=== PATIENT | female | born 1970 | race Caucasian/White ===

== ENCOUNTER 2019-08-19 19:37 | Inpatient (IN) | payer MEDICAID, SELFPAY ==
[2019-08-19] VITALS (7 sets, daily range): BP systolic 90–126; BP diastolic 70–96; PULSE 81–119; RESP 20–29; O2SAT 94–100
--- NOTE | 2019-08-19 | ECG_ITS ---
Measurements Intervals [place] Rate: 117 P: 55 AR: 132 QRS: 48 QRSD: 85 T: 58 QT: 381 QTc: 533 Interpretive Statements SINUS TACHYCARDIA POSSIBLE LEFT ATRIAL ENLARGEMENT NONSPECIFIC ST & T-WAVE ABNORMALITY- ANTEROLAT/INF LEADS ABNORMAL ECG Electronically Signed On 08-20-2019 7:00:58 CDT by Alexandre Celestin D.O.
--- NOTE | ~2019-08-19 | XR_ITS ---
XR chest 1V portable DATE: 08/19/2019 20:25 INDICATION: Overdose TECHNIQUE: Portable AP chest on 08/19/2019 at 2024 hours COMPARISON: None FINDINGS: There are. Consider pneumonia and aspiration pneumonitis mild bibasilar infiltrates and/or atelectasis. Pneumonia should be considered. Given the history of overdose, consider aspiration pneum onitis. Normal heart size. No pleural effusion or pulmonary vascular congestion or pneumothorax. Surgical clips overlie the left cervical area. Skeletal structures are unremarkable. IMPRESSION: Mild bibasilar infiltrate and/or atelectasis Reviewed, dictated and finalized at location A.
--- NOTE | ~2019-08-19 | XR_ITS ---
EXAMINATION: XR chest ET placement DATE: 08/19/2019 22:39 INDICATION: Intubation. TECHNIQUE: A single frontal view of the chest was obtained. COMPARISON: Chest single view 08/19/2019 at 8:20 PM FINDINGS: There is mild atelectasis at left lung base. No pleural effusion or pneumothorax. The heart size is normal. The endotracheal tube tip is 2.9 cm above the ava. The nasogastric tube tip is in the stomach. IMPRESSION: 1. Mild atelectasis at left lung base. Reviewed, dictated and finalized at location A.
--- NOTE | ~2019-08-19 | CT_ITS ---
EXAMINATION: CT brain wo con DATE: 08/19/2019 21:49 INDICATION: Altered mental status. Drug overdose. TECHNIQUE: Computed tomography (CT) of the head was performed without intravenous contrast. The mA wa s adjusted according to patient size. Iterative reconstruction technique was employed. The dose-lengt h product was 681.00 mGy-cm. COMPARISON: None FINDINGS: There is no intracranial hemorrhage, acute infarction, or abnormal intracranial mass lesion . The ventricles are normal in size. The orbits are normal. There is mucosal thickening in the parana ulysses sinuses. The mastoid air cells are normal. IMPRESSION: 1. Normal brain. Reviewed, dictated and finalized at location A. IMPRESSION: 1. Normal brain.
[2019-08-19] MEDS: NALOXONE HCL INJ 2 MG/2 ML AMP IV PUSH (19:50)
--- NOTE | 2019-08-19 19:50 | PC.NURSE ---
ERP in room. ERP inserted 24g nasal trumpet in R nare.
[2019-08-19 20:05] LABS: Basophils Percent Auto 0.4 % (0.2-1.2); Eosinophils Absolute Auto 0.2 K/mm3 (0-0.3); Hematocrit 42.4 % (37.0-47.0); Hemoglobin 14.5 g/dL (12.0-15.0); Immature Granulocyte Absolute 0.04 K/mm3 (0.00-0.031); Immature Granulocyte Percent A 0.5 % (0-0.5); Lymphocytes Absolute Auto 2.44 K/mm3 (0.9-3.2); Lymphocytes Percent Auto 30.7 % (18.3-44.2); Mean Corpuscular HGB Conc 34.2 g/dl (32-36); Mean Corpuscular Hemoglobin 30.7 pg (26-34); Mean Corpuscular Volume 89.6 fl (80-100); Mean Platelet Volume 9.4 fl (7.4-10.4); Monocytes Absolute Auto 0.7 K/mm3 (0.1-0.6); Monocytes Percent Auto 9.3 % (2.6-8.5); Neutrophils Absolute Auto 4.5 K/mm3 (1.3-6.7); Neutrophils Percent Auto 57.1 % (45.5-73.1); Platelet Count Result 363 k/mm3 (150-375); Red Blood Count 4.73 M/mm3 (4.2-5.4); Red Cell Distribution Width 12.4 % (11.5-14.5); White Blood Count 7.9 K/mm3 (4.5-10.0)
--- NOTE | 2019-08-19 20:06 | ED.OVERDOSE ---
HPI - Overdose General Chief Complaint: Overdose Stated Complaint: OD Time Seen by Provider: 08/19/19 20:05 History of Present Illness HPI Narrative: Patient presents via EMS for overdose of benzodiazepines and alcohol. She was apparently speaking in the ambulance, and then slumped over, and became unresponsive. They were bagging when she arrived. Her oxygenation was good, but when she was laying back, her airway was being compromised. Inserted a nasal cannula, into the right nostril, and rolled her to her side. Her oxygenation was fine after that. She is not waking to voice or physical stimulation. complaint: other (Unknown) Onset (ago): hour(s) Timing confirmed by: family member (2119 the [place]oks of 20 years is here now. They have 5 grown children together. The son in the [place] called damian with bad news. She has been under a lot of stress with the COVID she has been under a lot of stress with the COVID) How Overdose Was Discovered: family/friend present at time Associated symptoms: depression Treatments Prior to Arrival: oxygen Related Data Home Medications Medication Instructions Recorded Confirmed hydrochlorothiazide 25 mg PO DAILY 08/19/19 Allergies Allergy/AdvReac Type Severity Reaction Status Date / Time No Known Allergies Allergy Unknown Unverified 03/10/16 16:45 Review of Systems Review of Systems: ROS unobtainable: Yes unobtainable due to mental status PMFSH Surgical History Surgical History (Updated 08/19/19 @ 21:18 by Carol Stewart MD) History of thyroidectomy Family History Family History (Updated 12/20/13 @ 07:13 by DOCTOR UNKNOWN) Sibling Hypertension Father Family history of heart disease in male family member before age 55 Grandparent Family history of heart disease in male family member before age 55 Social History Social History Smoking status: Current every day smoker Alcohol intake: current Gender identity (if verbalized by the patient): Female Exam Narrative: Exam Narrative: GENERAL: Well-appearing, well-nourished, overweight. HEAD: Normocephalic, atraumatic. EYES: ENT: Nares clear, no rhinorrhea or epistaxis. Mucous membranes moist. NECK: Supple. CHEST: Clear to auscultation. No respiratory distress. HEART: Regular rate and rhythm. No murmur heard. Normal peripheral pulses. ABDOMEN: Soft, nontender, nondistended, normal active bowel sounds. EXTREMITIES: No edema. SKIN: Warm, dry, no rash. NEURO: No focal deficits. PSYCH: Not awake, snoring respirations. Course Consultations Consultation #1: Called hospitalist at [address] Dudley requests a head CT, and wants additional information. Date: 08/19/19 Time: 20:51 Consultation #2: Call Dr. Negron for ICU placement, and he requested ABG. Date: 08/19/19 Time: 22:32 Consultation #3: Call Dr. Chen back with the intubation and results of the CAT scan of the head and he accepted to ICU. Date: 08/19/19 Time: 22:36 Vital Signs Vital signs: Vital Signs Pulse Rate 118 H 08/19/19 19:37 Respiratory Rate 29 H 08/19/19 19:37 Blood Pressure 120/92 H 08/19/19 19:37 Pulse Oximetry 95 08/19/19 19:37 Pulse Rate 81 08/19/19 22:46 Respiratory Rate 24 H 08/19/19 22:08 Blood Pressure 93/70 L 08/19/19 22:08 Pulse Oximetry 99 08/19/19 22:46 Procedures Intubation Intubation #1: Intubation Date: 08/19/19 Intubation Time: 22:29 Time out performed: Yes sedative: Etomidate Mg Given: 20 paralytic: Succinylcholine Mg Given: 100 Laryngoscope: Rene Tube Size (cm): 7.0 Method of Intubation: orotracheal Number of Attempts: 2 Tube Secured Depth (cm): 24 Tube Secured Location: lips Tube Placement Confirmation: visualized tube passing through cords, equal breath sounds bilaterally and confirmation by capnometry Patient Tolerated Procedure: well Intubation Complications: none
[2019-08-19 20:09] LABS: Add Urine Microscopic? NO; Appearance Urine Clear (Clear); Bilirubin Urine Negative (Negative); Blood Urine Negative (Negative); Color Urine Yellow (Yellow); Glucose Urine UA Negative (Negative); Ketones Urine Negative (Negative); Leukocyte Esterase Ur Negative LEU/UL (Negative); Nitrate Urine Negative (Negative); Protein Urine Negative (Negative); Specific Grav Ur 1.009 (1.001-1.035); Urobilinogen Urine Negative mg/dL (<2.0)
[2019-08-19 20:20] LABS: Acetaminophen < 10 ug/mL (10-30); Ethanol 188 mg/dL (<10); Salicylate < 1.0 mg/dL (2-20)
[2019-08-19 20:21] LABS: Alanine Aminotransferase 37 U/L (4-35); Albumin Level 4.6 g/dL (3.5-5.1); Alkaline Phosphatase 89 U/L (38-126); Aspartate Amino Transferase 44 U/L (14-36); Bilirubin,Total 0.3 mg/dL (0.2-1.3); Blood Urea Nitrogen 11 mg/dL (7-17); Calcium 9.3 mg/dL (8.4-10.2); Carbon Dioxide 24 mmol/L (22-30); Chloride 100 mmol/L (98-107); Estimated Glomerular Filt Rate 53; Glucose 131 mg/dL (65-105); Potassium 3.3 mmol/L (3.4-5.0); Sodium 137 mmol/L (137-145)
[2019-08-19 20:30] LABS: Barbiturate Screen Urine Negative (Negative); Benzodiazepines Screen Urine Positive (Negative)
--- NOTE | 2019-08-19 20:30 | PC.NURSE ---
Poison Control contacted. Informed us to add a Magnesium level and to be in the look out for EKG changes. Poison control said to keep Magnesium and potassium levels on the high end of normal.
[2019-08-19 20:31] LABS: Cannabinoid Screen Urine Negative (Negative); Cocaine Screen Urine Negative (Negative); Methadone Screen Urine Negative (Negative); Opiate Screen Urine Negative (Negative); Phencyclidine Screen Urine Negative (Negative)
[2019-08-19 20:47] LABS: Amphetamine Screen Urine Negative (Negative)
[2019-08-19 20:50] LABS: Magnesium 2.2 mg/dL (1.6-2.3)
[2019-08-19 20:51] LABS: Thyroid Stimulating Hormone 0.648 uIU/mL (0.465-4.680)
[2019-08-19 21:42] LABS: Lactic Acid 3.4 mmol/L (0.7-2.1)
[2019-08-19] MEDS: metroNIDAZOLE 500 MG/ISO 100ML 500 MG/100 ML BAG 100 MG IVPB (22:16)
--- NOTE | 2019-08-19 22:16 | PC.NURSE ---
ERP in room to intubate pt. Pt family member discussed plan and sent out to waiting room.
--- NOTE | 2019-08-19 22:20 | PC.NURSE ---
20 etomidate/100 succinocholine given at this time.
--- NOTE | 2019-08-19 22:22 | PC.NURSE ---
Pt intubated at this time with 7.0 tube 24 at lip.
[2019-08-19] MEDS: SODIUM CHLORIDE 0.9% IV 1,000 ML 999 ML IV CONT (22:51)
[2019-08-19] MEDS: PROPOFOL IV EMULSION 100 ML 2.9 MG IV CONT (22:57)
[2019-08-19 23:30] LABS: Alveolar/Arterial O2 Gradient 150.8 mmHg; Base Excess ABG -2.8 mEq/l (+/-2.0); Fractional Inspired Oxygen 50 %; HCO3 ABG 22.1 mEq/l (22.0-26.0); Methemoglobin ABG 0.2 %THb (0-1.5); Oxygen Content ABG 18.2 %vol (16.0-22.0); Oxyhemoglobin 94.1 % THb (90.0-100.0); PCO2 ABG 39.1 mmHg (35.0-45.0); PO2 ABG 161.7 mmHg (80.0-100.0); PO2 FiO2 Ratio Arterial Blood 3.23 %; Reduced Hemoglobin 1.7 %THb (0-5.0); Total Hemoglobin 13.5 g/dL (12.0-18.0)
[2019-08-19 23:31] LABS: Arterial Blood Gas PEEP 5 cmH2O; Arterial Blood Gas Pressure Support 0 cmH2O; Arterial Blood Gas Tidal Volume 500 ml; Arterial Blood Gas Vent Mode CMV; Arterial Blood Gas Ventilator rate 12 /MIN; Device VENTILATOR; Modified Allen's Test Pass; Site Drawn RIGHT RADIAL
[2019-08-20] VITALS (17 sets, daily range): BP systolic 100–126; BP diastolic 63–87; PULSE 64–88; RESP 12–20; TEMP 36.4–36.9; O2SAT 98–100; BMI 32.1; BMI 31.8
--- NOTE | 2019-08-20 00:35 | PM.IMHP ---
H&P: HPI History of Present Illness Chief complaint: Overdose Narrative: This is a 49 year old female who presented to the hospital via EMS secondary to a possible drug overdose. EMS reported that she might have overdosed from benzodiazepines and alcohol. The patient was obtunded and could not give ER provider and history. She was intubated and placed on mechanical ventilation in the ER for airway protection. Switch Coupler has been consulted. No further history is obtainable as the patient is intubated and sedated and no family is present. Review of Systems Review of Systems: All systems reviewed & are unremarkable except as noted in HPI and below PMFSH Surgical History Surgical History History of thyroidectomy Family History Family History Sibling Hypertension Father Family history of heart disease in male family member before age 55 Grandparent Family history of heart disease in male family member before age 55 Social History Social History Smoking status: Current every day smoker Alcohol intake: unknown Substance use: unknown Substance use type: unknown Gender identity (if verbalized by the patient): Female Spiritual care concerns: No Agree to blood products: Yes Comments Past medical/surgical/social/family medical history is not obtainable from the patient as she is intubated and sedated. Meds Home Medications and Allergies Home Medications Medication Instructions Recorded Confirmed Type hydrochlorothiazide 25 mg PO DAILY 08/19/19 History Allergies Allergy/AdvReac Type Severity Reaction Status Date / Time No Known Allergies Allergy Unknown Unverified 03/10/16 16:45 Vital Signs Vital Signs - 24 hr 08/19/19 19:37 08/19/19 19:58 08/19/19 20:21 Pulse Rate 118 H 119 H 109 H Respiratory Rate 29 H 26 H 26 H Blood Pressure 120/92 H 109/83 100/77 Pulse Oximetry 95 96 96 08/19/19 20:44 08/19/19 22:08 08/19/19 22:46 Pulse Rate 104 H 85 81 Respiratory Rate 26 H 24 H Blood Pressure 90/76 L 93/70 L Pulse Oximetry 94 96 99 08/19/19 23:36 08/20/19 00:07 Pulse Rate 94 87 Respiratory Rate 20 Blood Pressure 126/96 H Pulse Oximetry 100 100 Exam Const: General: other (intubated, on mechanical ventilation and sedated on propofol) Nutritional Appearance: well nourished HENMT: Head: normal to inspection General nose exam: Normal external nose present Face and sinus: normal facial exam Mouth: Yes Normal oral and palatal mucosa present and Yes oropharynx normal Eyes: Pupils: Equal, round and reactive pupils present EOM: EOMs intact bilaterally Neck: Neck: supple and no JVD Thyroid: thyroid normal Lymphatic: lymphadenopathy not noted Resp: Effort & Inspection: normal respiratory effort Auscultation: clear to auscultation bilaterally Cardio: Rate: regular rate Rhythm: regular rhythm Heart sounds: no murmurs GI: Inspection: normal to inspection Auscultation: normal bowel sounds Skin: General skin exam: normal color and no rashes or lesions noted Neuro: Cranial nerves: Yes Equal, round and reactive pupils present Extrem: General: normal to inspection and no edema H&P: Results Labs Labs: Short CBC 08/19/19 Range/Units 19:53 WBC 7.9 (4.5-10.0) K/mm3 Hgb 14.5 (12.0-15.0) g/dL Hct 42.4 (37.0-47.0) % Plt Count 363 (150-375) k/mm3 BMP 08/19/19 19:53 Sodium 137 Potassium 3.3 L Chloride 100 Carbon Dioxide 24 BUN 11 Creatinine 1.10 H Glucose 131 H Calcium 9.3 Liver Function 08/19/19 Range/Units 19:53 Total Bilirubin 0.3 (0.2-1.3) mg/dL AST 44 H (14-36) U/L ALT 37 H (4-35) U/L Alkaline Phosphatase 89 (38-126) U/L Albumin 4.6 (3.5-5.1) g/dL Urine 08/19/19 Range/Units 19:58 Urine Color Yellow (Yellow) Urine Appearance
[2019-08-20] MEDS: DEXTROSE 5%/0.9% SOD CHL 1,000 ML 100 ML IV CONT ×2 (01:00→11:25)
[2019-08-20 01:16] LABS: Lactic Acid Reflex 3.2 mmol/L (0.7-2.1)
[2019-08-20 01:17] LABS: Blood Urea Nitrogen 8 mg/dL (7-17); Calcium 7.8 mg/dL (8.4-10.2); Carbon Dioxide 20 mmol/L (22-30); Chloride 105 mmol/L (98-107); Estimated Glomerular Filt Rate > 60; Glucose 66 mg/dL (65-105); Potassium 3.4 mmol/L (3.4-5.0); Sodium 137 mmol/L (137-145)
--- NOTE | 2019-08-20 01:47 | PC.NURSE ---
This patient, Flor Wise, was admitted to Intensive Care Unit-10. Patient/family oriented to hospital policies and general routines including ID bracelet, bed and alarms, visiting hours, pain management, procedures, bathroom and other care routines, personal items, smoking policy, room service/diet, and visiting hours. Valuables list has been completed. Information on how to activate the Rapid Response Team has been discussed. Patient/Family are encouraged to report perceived risks to care and to ask questions if they do not understand what they are told or what they should do.
[2019-08-20 04:01] LABS: Reflex Lactic Acid Yes or No Add Lactic
[2019-08-20 04:24] LABS: Alveolar/Arterial O2 Gradient 110.6 mmHg; Base Excess ABG -3.5 mEq/l (+/-2.0); Carboxyhemoglobin 2.1 % THb (0-2.0); Fractional Inspired Oxygen 40 %; HCO3 ABG 21.5 mEq/l (22.0-26.0); Methemoglobin ABG 0.3 %THb (0-1.5); Oxygen Saturation ABG 98.5 % (95.0-100.0); Oxyhemoglobin 95.4 % THb (90.0-100.0); PCO2 ABG 38.7 mmHg (35.0-45.0); PO2 ABG 130.1 mmHg (80.0-100.0); PO2 FiO2 Ratio Arterial Blood 3.25 %; Reduced Hemoglobin 2.2 %THb (0-5.0); Total Hemoglobin 12.3 g/dL (12.0-18.0); pH ABG 7.362 (7.350-7.450)
[2019-08-20 04:26] LABS: Modified Allen's Test Pass; Oxygen Content ABG 2.2 %vol (16.0-22.0); Site Drawn RIGHT RADIAL
[2019-08-20 04:27] LABS: Arterial Blood Gas PEEP 5 cmH2O; Arterial Blood Gas Pressure Support 0 cmH2O; Arterial Blood Gas Tidal Volume 500 ml; Arterial Blood Gas Vent Mode CMV; Arterial Blood Gas Ventilator rate 12 /MIN; Device VENTILATOR
[2019-08-20 04:55] LABS: Basophils Percent Auto 0.3 % (0.2-1.2); Eosinophils Absolute Auto 0.2 K/mm3 (0-0.3); Eosinophils Percent Auto 3.1 % (0-4.4); Hematocrit 40.2 % (37.0-47.0); Hemoglobin 13.6 g/dL (12.0-15.0); Immature Granulocyte Absolute 0.03 K/mm3 (0.00-0.031); Immature Granulocyte Percent A 0.5 % (0-0.5); Lymphocytes Absolute Auto 2.16 K/mm3 (0.9-3.2); Lymphocytes Percent Auto 37.8 % (18.3-44.2); Mean Corpuscular HGB Conc 33.8 g/dl (32-36); Mean Corpuscular Hemoglobin 30.9 pg (26-34); Mean Corpuscular Volume 91.4 fl (80-100); Mean Platelet Volume 9.4 fl (7.4-10.4); Monocytes Absolute Auto 0.8 K/mm3 (0.1-0.6); Monocytes Percent Auto 14.5 % (2.6-8.5); Neutrophils Absolute Auto 2.5 K/mm3 (1.3-6.7); Neutrophils Percent Auto 43.8 % (45.5-73.1); Platelet Count Result 279 k/mm3 (150-375); Red Cell Distribution Width 12.3 % (11.5-14.5); White Blood Count 5.7 K/mm3 (4.5-10.0)
[2019-08-20 05:06] LABS: Lactic Acid 3.3 mmol/L (0.7-2.1)
[2019-08-20 05:08] LABS: Blood Urea Nitrogen 8 mg/dL (7-17); Calcium 8.4 mg/dL (8.4-10.2); Carbon Dioxide 23 mmol/L (22-30); Chloride 105 mmol/L (98-107); Estimated CRCL calculation 100 ml/min; Estimated Glomerular Filt Rate > 60; Glucose 74 mg/dL (65-105); Magnesium 2.1 mg/dL (1.6-2.3); Potassium 3.6 mmol/L (3.4-5.0); Sodium 138 mmol/L (137-145)
[2019-08-20 05:10] LABS: Alanine Aminotransferase 27 U/L (4-35); Aspartate Amino Transferase 39 U/L (14-36)
[2019-08-20] MEDS: metroNIDAZOLE 500 MG/ISO 100ML 500 MG/100 ML BAG 100 MG IVPB ×4 (08:25→23:42)
[2019-08-20 09:17] LABS: Alveolar/Arterial O2 Gradient 78.9 mmHg; Base Excess ABG -2.4 mEq/l (+/-2.0); Carboxyhemoglobin 0.2 % THb (0-2.0); Fractional Inspired Oxygen 40 %; Methemoglobin ABG 0.4 %THb (0-1.5); Oxygen Content ABG 18.9 %vol (16.0-22.0); Oxygen Saturation ABG 99.2 % (95.0-100.0); Oxyhemoglobin 97.8 % THb (90.0-100.0); PCO2 ABG 32.2 mmHg (35.0-45.0); PO2 ABG 169.3 mmHg (80.0-100.0); PO2 FiO2 Ratio Arterial Blood 4.23 %; Reduced Hemoglobin 1.6 %THb (0-5.0); Total Hemoglobin 13.5 g/dL (12.0-18.0); pH ABG 7.432 (7.350-7.450)
[2019-08-20 09:20] LABS: Device VENTILATOR; Modified Allen's Test Pass; Site Drawn RIGHT RADIAL
[2019-08-20 09:21] LABS: Arterial Blood Gas PEEP 5 cmH2O; Arterial Blood Gas Pressure Support 5 cmH2O; Arterial Blood Gas Vent Mode SPONTANEOUS
--- NOTE | 2019-08-20 10:34 | WPDCNINT ---
Assessment and Plan Assessment and plan (1) Acute respiratory failure: Qualifiers: Respiratory failure complication: unspecified whether with hypoxia or hypercapnia Qualified Code(s): J96.00 - Acute respiratory failure, unspecified whether with hypoxia or hypercapnia Code(s): J96.00 - Acute respiratory failure, unspecified whether with hypoxia or hypercapnia Status: Acute Assessment and Plan: secondary to toxic encephalopathy I performed a weaning trial this morning on a patient 5/5 PSV SBT done for more than 1 hour. RSBI, ABGI and Vitals acceptable. Pt awake and following commands. I extubated patient.monitor. NPO for now. (2) Alcohol intoxication: Qualifiers: Complication of substance-induced condition: with unspecified complication Qualified Code(s): F10.929 - Alcohol use, unspecified with intoxication, unspecified Code(s): F10.929 - Alcohol use, unspecified with intoxication, unspecified Status: Acute Assessment and Plan: IV fluids, p.o. thiamine and folic acid monitor for signs of withdrawal (3) Drug overdose: Qualifiers: Encounter type: initial encounter Injury intent: undetermined intent Qualified Code(s): T50.904A - Poisoning by unspecified drugs, medicaments and biological substances, undetermined, initial encounter Code(s): T50.901A - Poisoning by unspecified drugs, medicaments and biological substances, accidental (unintentional), initial encounter Status: Acute Assessment and Plan: patient told me that she took at least 25 pills of Flexeril and 2-3 pills of Xanax. Now awake and alert and hemodynamically stable (4) Aspiration pneumonia: Code(s): J69.0 - Pneumonitis due to inhalation of food and vomit Status: Acute Assessment and Plan: cultures pending empiric Rocephin and Flagyl (5) Depression: Code(s): F32.9 - Major depressive disorder, single episode, unspecified Status: Acute Assessment and Plan: patient told me that she was diagnosed with depression in the past and was started on Wellbutrin but she has not been taking any medication recently. she has been having several issues in the family and personal relationship and felt depressed and has tried to commit suicide by taking Flexeril alcohol and Xanax. patient states this is the 1st time she has tried to commit suicide (6) Suicide attempt: Code(s): T14.91XA - Suicide attempt, initial encounter Status: Acute Assessment and Plan: sitter at bedside at this time psychiatry will be consulted advance diet Lovenox for DVT prophylaxis PT consult Total Critical Care Time - 35 minutes Due to a high probability of clinically significant, life threatening deterioration, the patient required my highest level of preparedness to intervene emergently and I personally spent this critical care time directly and personally managing the patient. This critical care time included obtaining a history; examining the patient; pulse oximetry; ordering and review of studies; arranging urgent treatment with development of a management plan; evaluation of patient's response to treatment; frequent reassessment; and discussions with other providers. It was exclusive of separately billable procedures and treating other patients and teaching time. Please see Assessment and Plan section and the rest of the note for further information on patient assessment and treatment Sales Technician [employer] Consult Note Consult date: 08/20/19 Time Seen: 07:30 HPI: Flor Wise is a 49 year old female was brought to hospital by EMS with altered mental status patient was suspected to have overdose with benzodiazepines and alcohol. Patient was intubated in ED for airway protection and given empiric antibiotics for aspiration pneumonia. Patient was started on IV fluids and admitted to ICU for further management When I saw patient patient was on me
[2019-08-20 12:24] LABS: Glucose Point of Care 73 (65-105)
--- NOTE | 2019-08-20 16:38 | PM.IMPN ---
Progress Note: A&P Assessment and Plan (1) Acute respiratory failure: Qualifiers: Respiratory failure complication: unspecified whether with hypoxia or hypercapnia Qualified Code(s): J96.00 - Acute respiratory failure, unspecified whether with hypoxia or hypercapnia Code(s): J96.00 - Acute respiratory failure, unspecified whether with hypoxia or hypercapnia Status: Acute Assessment and Plan: Secondary to acute drug overdose. The patient was intubated in the ER for airway protection and placed on mechanical ventilation. . Continue mechanical ventilation and wean as tolerated.probable extubate today per sweat box attendant. (2) Drug overdose: Qualifiers: Encounter type: initial encounter Injury intent: undetermined intent Qualified Code(s): T50.904A - Poisoning by unspecified drugs, medicaments and biological substances, undetermined, initial encounter Code(s): T50.901A - Poisoning by unspecified drugs, medicaments and biological substances, accidental (unintentional), initial encounter Status: Acute Assessment and Plan: We will need to obtain a complete history when the patient is extubated, awake and alert. Continue supportive care for now... Urine drug screen benzo only . Crisis consult in am when medically stable. (3) Alcohol intoxication: Qualifiers: Complication of substance-induced condition: with unspecified complication Qualified Code(s): F10.929 - Alcohol use, unspecified with intoxication, unspecified Code(s): F10.929 - Alcohol use, unspecified with intoxication, unspecified Status: Acute Assessment and Plan: We will need to find out if the patient has a history of alcohol abuse when she is extubated. (4) Acidosis, lactic: Code(s): E87.2 - Acidosis Status: Acute Assessment and Plan: . Continue IV hydration. Probable from alcohol or hypoperfusion Recheck a.m.. (5) Hypertension: Qualifiers: Hypertension type: unspecified Qualified Code(s): I10 - Essential (primary) hypertension Code(s): I10 - Essential (primary) hypertension Status: Chronic Assessment and Plan: stable. monitor blood pressure. resume HCTZ when appropriate. (6) Hypokalemia: Code(s): E87.6 - Hypokalemia Status: Acute Assessment and Plan: . We will replace potassium as needed. Continue telemetry. (7) Elevated liver enzymes: Code(s): R74.8 - Abnormal levels of other serum enzymes Status: Acute Assessment and Plan: Already falling and with AST greater than ALT probably secondary to ETOH Check hep profile also Subjective Date/time seen: 08/20/19 16:38 Interval history: Date of visit 08/19. 49-year-old white female with history of depression presented to the emergency room obtain ended after apparent overdose. She was intubated and mechanically vein of related to protect her airway. When I am seeing her in the ICU she is still on a ventilator and sedated. Exam Narrative: Exam Narrative: Blood pressure 106/70 pulse is 86 saturating 100% on FiO2 of 40% afebrile Pupils are equal reactive to light Lungs clear CV regular rate rhythm no murmurs Abdomen is soft nontender Extremities without edema distal pulses 2+ Neuro sedated Objective Data Vital Signs Vital Signs: Vital Signs - 24 hr 08/19/19 19:37 08/19/19 19:58 08/19/19 20:21 Temperature Pulse Rate 118 H 119 H 109 H Respiratory Rate 29 H 26 H 26 H Blood Pressure 120/92 H 109/83 100/77 Pulse Oximetry 95 96 96 08/19/19 20:44 08/19/19 22:08 08/19/19 22:46 Temperature Pulse Rate 104 H 85 81 Respiratory Rate 26 H 24 H Blood Pressure 90/76 L 93/70 L Pulse Oximetry 94 96 99 08/19/19 23:36 08/20/19 00:00 08/20/19 00:07 Temperature 36.4 C Pulse Rate 94 83 87 Respiratory Rate 20 16 Blood Pressure 126/96 H 122/87 Pulse Oximetry 100 100 100 08/20/19 02:00 08/20/19 04:00 08/20/19 04:16 Temp
[2019-08-20 17:21] LABS: Glucose Point of Care 78 (65-105)
[2019-08-21] VITALS (8 sets, daily range): BP systolic 104–131; BP diastolic 67–93; PULSE 73–97; RESP 14–23; TEMP 36.7–37.2; O2SAT 97–100
[2019-08-21] MEDS: DEXTROSE 5%/0.9% SOD CHL 1,000 ML 100 ML IV CONT (00:21)
[2019-08-21 00:26] LABS: Glucose Point of Care 85 (65-105)
[2019-08-21] MEDS: metroNIDAZOLE 500 MG/ISO 100ML 500 MG/100 ML BAG 100 MG IVPB ×3 (04:52→18:10)
[2019-08-21 05:02] LABS: Hematocrit 35.9 % (37.0-47.0); Hemoglobin 12.1 g/dL (12.0-15.0); Mean Corpuscular HGB Conc 33.7 g/dl (32-36); Mean Corpuscular Hemoglobin 30.6 pg (26-34); Mean Corpuscular Volume 90.9 fl (80-100); Mean Platelet Volume 10.1 fl (7.4-10.4); Platelet Count Result 320 k/mm3 (150-375); Red Blood Count 3.95 M/mm3 (4.2-5.4); Red Cell Distribution Width 12.5 % (11.5-14.5); White Blood Count 7.2 K/mm3 (4.5-10.0)
[2019-08-21 05:18] LABS: Alanine Aminotransferase 25 U/L (4-35); Albumin Level 3.2 g/dL (3.5-5.1); Alkaline Phosphatase 74 U/L (38-126); Aspartate Amino Transferase 37 U/L (14-36); Bilirubin,Total 0.5 mg/dL (0.2-1.3); Blood Urea Nitrogen 9 mg/dL (7-17); Calcium 8.3 mg/dL (8.4-10.2); Carbon Dioxide 26 mmol/L (22-30); Chloride 108 mmol/L (98-107); Estimated CRCL calculation 88 ml/min; Estimated Glomerular Filt Rate > 60; Glucose 91 mg/dL (65-105); Lactic Acid 0.8 mmol/L (0.7-2.1); Potassium 3.9 mmol/L (3.4-5.0); Sodium 140 mmol/L (137-145)
[2019-08-21 05:57] LABS: Hepatitis B Surface Antigen Negative (Negative)
[2019-08-21 06:03] LABS: HAV RESULT Negative (Negative); Hepatitis B Core IgM Result Negative (Negative)
[2019-08-21 06:15] LABS: Hepatitis C Virus Antibody Negative (Negative)
[2019-08-21 08:16] LABS: Glucose Point of Care 95 (65-105)
[2019-08-21] MEDS: ENOXAPARIN 40 MG/0.4 ML SYRINGE SUB-Q (10:09)
[2019-08-21] MEDS: FOLIC ACID 1 MG TABLET PO (10:10)
[2019-08-21] MEDS: THIAMINE HCL 100 MG TABLET PO (10:10)
--- NOTE | 2019-08-21 10:40 | PM.IMPN ---
Progress Note: A&P Assessment and Plan (1) Acute respiratory failure: Qualifiers: Respiratory failure complication: unspecified whether with hypoxia or hypercapnia Qualified Code(s): J96.00 - Acute respiratory failure, unspecified whether with hypoxia or hypercapnia Code(s): J96.00 - Acute respiratory failure, unspecified whether with hypoxia or hypercapnia Status: Acute Assessment and Plan: Secondary to acute drug overdose. The patient was intubated in the ER for airway protection and placed on mechanical ventilation. Antibiotics started for possible aspiration pneumonia. Continue Rocephin and Flagyl for now. Discussed with photoengraving proofer apprentice. (2) Drug overdose: Qualifiers: Encounter type: initial encounter Injury intent: undetermined intent Qualified Code(s): T50.904A - Poisoning by unspecified drugs, medicaments and biological substances, undetermined, initial encounter Code(s): T50.901A - Poisoning by unspecified drugs, medicaments and biological substances, accidental (unintentional), initial encounter Status: Acute Assessment and Plan: Patient had been more depressed and had suicidal intentions with drinking alcohol and Flexeril and Xanax overdose. Urine drug screen benzo only. Alcohol level was 188. She appears of tolerated the overdose well. Crisis consult now that she is medically stable. (3) Alcohol intoxication: Qualifiers: Complication of substance-induced condition: with unspecified complication Qualified Code(s): F10.929 - Alcohol use, unspecified with intoxication, unspecified Code(s): F10.929 - Alcohol use, unspecified with intoxication, unspecified Status: Acute Assessment and Plan: Patient has a history of binge drinking. Currently on thiamine and folate. No evidence of alcohol withdrawal. Continue to monitor. (4) Acidosis, lactic: Code(s): E87.2 - Acidosis Status: Acute Assessment and Plan: Lactic acid level 3.4 on admission and persistently elevated yesterday. Lactic acid level normal today. Patient eating normally. Currently off IV fluids (5) Hypertension: Qualifiers: Hypertension type: unspecified Qualified Code(s): I10 - Essential (primary) hypertension Code(s): I10 - Essential (primary) hypertension Status: Chronic Assessment and Plan: Blood pressure reviewed on 08/21/2019. Blood pressure well controlled. HCTZ on hold. Continue to monitor. (6) Hypokalemia: Code(s): E87.6 - Hypokalemia Status: Acute Assessment and Plan: Potassium 3.3 on admission. Possibly related to the HCTZ. Potassium has been replaced and remains stable. (7) Elevated liver enzymes: Code(s): R74.8 - Abnormal levels of other serum enzymes Status: Acute Assessment and Plan: LFTs mildly elevated but related to alcohol. Levels trending down. (8) Tobacco abuse: Code(s): Z72.0 - Tobacco use Status: Acute Assessment and Plan: Noted. Subjective Date/time seen: 08/21/19 10:40 Interval history: Date of visit 08/20. 49yo female with history of depression here for apparent overdose. She was intubated and mechanically ventilated to protect her airway. Assuming care. Chart reviewed. Patient was able to be extubated successfully yesterday. She denies feeling suicidal prior to her overdose. She has been binge drinking and did drink a pint just prior to admission. She feels well today. She denies any chest pain or shortness of breath. She does have a cough but this is a chronic condition for this patient related to her smoking habit. She takes Mucinex regularly at home. Eating normally. Staff has had the patient up walking in the room earlier today. She also does complain of chronic right knee pain osteoarthritis. She takes Flexeril chronically for back muscle spasms. Exam Narrative: E
--- NOTE | 2019-08-23 06:21 | PM.TDS ---
Transfer Discharge Sum: Prov Provider Date of admission: 08/19/19 22:52 Primary care physician: UNKNOWN,DOCTOR Admitting clinician: Kailash Zaragoza MD Discharging clinician: Lamin Pulliam date of transfer: 08/21/19 Receiving physician/facility: [facility] DS: Diagnosis Admitting Diagnosis Admitting Diagnosis: Acute respiratory failure, unspecified whether with hypoxia or hypercapnia Discharge Diagnosis (1) Acute respiratory failure: Qualifiers: Respiratory failure complication: unspecified whether with hypoxia or hypercapnia Qualified Code(s): J96.00 - Acute respiratory failure, unspecified whether with hypoxia or hypercapnia Code(s): J96.00 - Acute respiratory failure, unspecified whether with hypoxia or hypercapnia Status: Acute Assessment and Plan: Secondary to acute drug overdose. The patient was intubated in the ER for airway protection and placed on mechanical ventilation. CXR showing mild bibasilar infiltrates. Antibiotics started for possible aspiration pneumonia. Patient able to extubated once she became more awake and alert. No fever or elevated WBC. Patient without symptoms so abx not continued. No O2 requirement. (2) Drug overdose: Qualifiers: Encounter type: initial encounter Injury intent: undetermined intent Qualified Code(s): T50.904A - Poisoning by unspecified drugs, medicaments and biological substances, undetermined, initial encounter Code(s): T50.901A - Poisoning by unspecified drugs, medicaments and biological substances, accidental (unintentional), initial encounter Status: Acute Assessment and Plan: Patient had been more depressed and had suicidal intentions with drinking alcohol and Flexeril and Xanax overdose. Urine drug screen postive for benzo only. Alcohol level was 188. She recovered well with supportive care. Patient seen by Crisis and inpatient psych referral sent. She was accepted at [facility]. (3) Alcohol intoxication: Qualifiers: Complication of substance-induced condition: with unspecified complication Qualified Code(s): F10.929 - Alcohol use, unspecified with intoxication, unspecified Code(s): F10.929 - Alcohol use, unspecified with intoxication, unspecified Status: Acute Assessment and Plan: Patient has a history of binge drinking. Thiamine and folate started. No evidence of alcohol withdrawal during her hospital course. (4) Acidosis, lactic: Code(s): E87.2 - Acidosis Status: Acute Assessment and Plan: Lactic acid level 3.4 on admission and persistently elevated on repeat. Related to above. Lactic acid level normalize. Patient eating normally. (5) Hypertension: Qualifiers: Hypertension type: unspecified Qualified Code(s): I10 - Essential (primary) hypertension Code(s): I10 - Essential (primary) hypertension Status: Chronic Assessment and Plan: Blood pressure monitored closely. Blood pressure remained well controlled. HCTZ remained on hold. (6) Hypokalemia: Code(s): E87.6 - Hypokalemia Status: Acute Assessment and Plan: Potassium 3.3 on admission. Possibly related to the HCTZ. Potassium has been replaced and remains stable. (7) Elevated liver enzymes: Code(s): R74.8 - Abnormal levels of other serum enzymes Status: Acute Assessment and Plan: LFTs mildly elevated felt related to alcohol. Levels trending down. (8) Tobacco abuse: Code(s): Z72.0 - Tobacco use Status: Acute Assessment and Plan: Noted. Transfer Discharge Sum: Med Medications Active and Home Medications: Home Medications hydrochlorothiazide 25 mg PO DAILY 08/19/19 [History Confirmed 08/20/19] Transfer Discharge Sum: Hosp Hospital Course Hospital course: Flor Wise is a 49 year old female here for intentional overdose. Please se
== END 2019-08-21 18:45 | DRG 817 ==
LOC: ANHED 22:42 → ANHICU 08-20 12:02
PROVIDERS: Internal Medicine; Admitting Provider Family Medicine; Emergency Provider Emergency Medicine; Visit Provider Family Medicine
DX: T42.4X2A Poisoning by benzodiazepines, intentional self-harm, initial encounter (principal); T51.0X2A Toxic effect of ethanol, intentional self-harm, initial encounter; T48.1X2A Poisoning by skeletal muscle relaxants [neuromuscular blocking agents], intentional self-harm, initial encounter; E89.0 Postprocedural hypothyroidism; F17.200 Nicotine dependence, unspecified, uncomplicated; J96.00 Acute respiratory failure, unspecified whether with hypoxia or hypercapnia; E87.2 Acidosis; I10 Essential (primary) hypertension; E87.6 Hypokalemia; F32.9 Major depressive disorder, single episode, unspecified; I95.9 Hypotension, unspecified; G92 Toxic encephalopathy; J69.0 Pneumonitis due to inhalation of food and vomit
CPT/HCPCS: 31500; 36415; 36600; 51701; 70450; 71045; 80048; 80053; 80074; 80307; 81003; 81025; 82375; 82805; 83050; 83605; 83735; 84443; 84450; 84460; 85025; 85027; 87040; 93005; 94003; 96365; 96366; 96367; 96368; 96375; 97116; 97161; 97530; 99291; A9270; J0696; J1650; J2250; J2310; J2704; J3010; J3411; J3475; J7030; J7042; J7121

== ENCOUNTER 2020-02-12 12:36 | Emergency (ER) | payer OTHER, SELFPAY ==
--- NOTE | ~2020-02-12 | XR_ITS ---
EXAMINATION: XR chest 2V DATE: 02/12/2020 13:43 INDICATION: Nonproductive cough, tobacco use TECHNIQUE: PA and lateral views of the chest are obtained. COMPARISON: 08/19/2019 FINDINGS: The lungs are free of acute opacities. There is no pleural effusion or pneumothorax. The ca rdiomediastinal silhouette is normal. There is mild thoracic spondylosis. IMPRESSION: 1. No acute cardiopulmonary abnormality. Reviewed, dictated and finalized at location A.
[2020-02-12 12:49] VITALS: BP 130/97; PULSE 113; RESP 20; TEMP 37.1; O2SAT 100
--- NOTE | 2020-02-12 13:02 | ED.GENADULT ---
HPI - General Adult General Chief complaint: Upper Respiratory Infection Stated complaint: Chest tightness Time Seen by Provider: 02/12/20 13:02 Source: patient and RN notes reviewed Mode of arrival: ambulatory Limitations: no limitations History of Present Illness HPI narrative: 49-year-old female presents with complains of fever, intermittent cough, work of breathing, and wheezing, and congestion for the past 3 days. Nausea and emesis 1 day ago without abdominal pain and blood, has resolved. Tylenol and Ibuprofen with some relief. History of COPD/Emphysema, out of albuterol inhaler for approximately 3 months and no PMD. Intermittent dry cough. No rhinorrhea. Nasal congestion. Denies sore throat. Fever as high as 102.7 Fahrenheit on 02/10/20, none since. No drooling, neck or throat swelling. No chest pain or shortness of breath. Denies nausea, vomiting, and abdominal pain. Tolerating liquids well. LMP 6 months ago premenopausal. Remains active. The patient reports she have not been diagnosed with COVID-19. The patient reports she is not waiting for the results of a COVID-19 lab test. The patient reports she do not have weakness or fatigue. The patient reports she do not have a worsening cough. Denies chest pain. The patient reports she do not have any rhinorrhea, sore throat, loss of taste, abdominal pain, and diarrhea. Denies recent traveling. Denies concerns for COVID-19 or exposures been home with limited outdoor exposure except for essential household needs, work, and return home. At this time, patient is not suspected of having COVID-19. Some parts of this dictation were generated by voice recognition software and may contain typographical and/or grammatical inaccuracies. Related Data Allergies Allergy/AdvReac Type Severity Reaction Status Date / Time No Known Allergies Allergy Unknown Verified 02/12/20 13:03 Review of Systems Review of Systems: Narrative: CONSTITUTIONAL: Complains of fever. Denies sweats, chills, fatigue. EYES: Denies visual changes, redness, discharge. ENT: Complains of congestion. Denies rhinorrhea, sore throat, otalgia. CARDIOVASCULAR: Denies chest pain, palpitations, edema. RESPIRATORY: Complains of dyspnea, wheezing, dry cough, chest congestion, wheezing. GASTROINTESTINAL: Denies abdominal pain, diarrhea. Complains of nausea, vomiting. GENITOURINARY: Denies dysuria, hematuria, abnormal discharge. SKIN: Denies rash or itching. MUSCULOSKELETAL: Denies acute back pain, joint pain, or myalgia. NEUROLOGIC: Denies numbness or focal weakness. PSYCHIATRIC: Denies anxiety or depression. [facility] Past Medical History Medical History (Updated 02/13/20 @ 00:00 by Colt Khanna) Aspiration pneumonia Depression Elevated liver enzymes Hypertension Suicide attempt Tobacco abuse Surgical History Surgical History History of thyroidectomy Family History Family History Sibling Hypertension Father Family history of heart disease in male family member before age 55 Grandparent Family history of heart disease in male family member before age 55 Social History Social History Smoking packs per day: 0.5 Smoking cigarettes per day: 10.0 Smoking status: Current every day smoker Tobacco type: cigarettes Alcohol intake: current Substance use: current Substance use type: marijuana and unknown Gender identity (if verbalized by the patient): Female Spiritual care concerns: No Agree to blood products: Yes Comments At time of signature, agree with nurse past medical, surgical, social, and family history. There is relevant patient's past medical history pertinent to the presenting complaint, no relevant family history pertinent to the presenting complaint. Exam Narrative: Exam Narrative: GENERAL: This
== END 2020-02-12 14:07 | disposition home or self-care (01) ==
PROVIDERS: Emergency Provider Nurse Practitioner Family
DX: B34.9 Viral infection, unspecified (principal); Z20.828 Contact with and (suspected) exposure to other viral communicable diseases; F17.210 Nicotine dependence, cigarettes, uncomplicated; I10 Essential (primary) hypertension
CPT/HCPCS: 71046; 99213; G0463

== ENCOUNTER 2022-03-30 08:00 | Outpatient (RCR) | payer OTHER, SELFPAY ==
--- NOTE | 2022-01-11 12:42 | PTOPEVAL1 ---
Assessment and note entered by Jazmin Lopez, PT, DPT Evaluation Information Assessment Status Evaluation Diagnosis B knee pain Onset chronic, 3+ years Subjective Information Pt reports bilateral knee pain, R > L. She states her knee swells as soon as she is on her feet. She states she is on a steroid now and that has helped with the swelling. She states the pain in her R knee is continuous. She states her R knee meliza and will cause her to fall over. Pt reports increased stiffness globally in the morning. Reported Pain Level Pain Score 4,2: Self Report Assessment PT Clinical Summary Flor presents to therapy today for her initial evaluation with a diagnosis of junior knee pain and osteoarthritis. Today she demonstrates decreased active knee ROM junior put passive ROM that is WNL, she reports pain is her limiting factor. When assessing hip and knee ROM pain is felt before resistance. She demonstrates decreased strength through manual muscle testing, as well as through functional strength assessments. She ambulates with a decreased gait speed, decreased stride length, and lack of terminal knee extension. Skilled physical therapy services are indicated to address the deficits noted above, to manage pain, and to progress towards baseline function. Plan of Care Interventions Gait Training,Hot Pack/Cold Pack,Manual Therapy, Neuro Re-education,Patient/Caregiver Educati, Therapeutic Activities,Therapeutic Exercise PT Services Indicated Yes Treatment Frequency and 2x/wk for 5 wks Duration These treatments will address the objective and functional deficits as defined above. The patient will be advanced safely and appropriately in order for the patient to progress towards his/her prior level of function. Additional exercises will be introduced and as well as a comprehensive home exercise program upon discharge, if needed, ?to ensure carryover of functional gains achieved in the clinic. This treatment plan has been reviewed and agreement upon by the patient.
--- NOTE | 2022-01-27 09:53 | PCPTNOTE ---
Patient called to cancel due to having to take care of sick grandkids.
--- NOTE | 2022-02-18 08:53 | PTOPPROG ---
Assessment and note entered by Jazmin Lopez, PT, DPT Evaluation Information Assessment Status Progress Diagnosis B knee pain Onset chronic, 3+ years Subjective Information Pt states she thinks therapy is working but there is still work to be done . She states she has become more aware of her posture and LE alignment. She still struggles with stairs and squatting down. She states she twisted her knee when walking on a hill Tuesday. Pt reports 40% improvement with overall symptoms. Assessment PT Clinical Summary Flor presents to therapy today for her progress report following 7 visits of skilled therapy. Today she demonstrates improvement in her active knee flexion and extension, she still lacks terminal extension in supine d/t pain. She demonstrates improvements in her hip and knee strength, but this are still decreased from what is expected. She continues to requires increased time to perform sit<> stand transfers and took 44s to complete the 5xSTS test this date. She also ambulated with a very decreased gait speed and a wide based gait. Continuation of skilled physical therapy services are indicated to address the remaining deficits noted above, to manage pain, and to promote unlimited functional mobility. Plan of Care Interventions Gait Training,Hot Pack/Cold Pack,Manual Therapy, Neuro Re-education,Patient/Caregiver Educati, Therapeutic Activities,Therapeutic Exercise PT Services Indicated Yes Treatment Frequency and 2x/wk for 4 wks Duration These treatments will address the objective and functional deficits as defined above. The patient will be advanced safely and appropriately in order for the patient to progress towards his/her prior level of function. Additional exercises will be introduced and as well as a comprehensive home exercise program upon discharge, if needed, ?to ensure carryover of functional gains achieved in the clinic. This treatment plan has been reviewed and agreement upon by the patient.
--- NOTE | 2022-03-05 10:25 | PCPTNOTE ---
Patient has to cancel appointment this date due to her having to take her dog to the vet.
--- NOTE | 2022-03-30 10:40 | PTOPPROG ---
Assessment and note entered by Emma Patterson, PT Assessment Status Progress Report Diagnosis B knee pain Onset chronic, 3+ years Subjective Information Pt reports feeling 50-60% improved overall. States she did fall down some steps because of her LEFT knee recently. Reports normally she is doing stairs well, and her squats are a little better . Assessment PT Clinical Summary Pt has attended therapy consistently since last progress note. She cont to shoe improvement in objective measures such as 5 times sit to stand test, 2 minute walk test, improved flexion ROM, improved AROM knee extension, improved strength overall. She cont to demo significant soft tissue adhesions sj hamstrings, and adductor muscles, demos decreased patellar mobility R>L w/ crepitus, abnormal ankle/foot alignment promoting increased stress on knee joints, and new nodule in left posterior lateral knee which presentation suggests is a Sanon's cyst. Pt has yet to plateau in her therapy, feels she is still improving and still has deficits. Thus pt would benefit from cont therapy to continue improvement in deficits and decrease discomfort. Plan of Care Interventions Electrical Stimulation,Gait Training,Hot Pack/Cold Pack,Manual Therapy,Neuro Re-education,Patient/ Caregiver Educati,Therapeutic Activities, Therapeutic Exercise,Ultrasound PT Services Indicated Yes These treatments will address the objective and functional deficits as defined above. The patient will be advanced safely and appropriately in order for the patient to progress towards his/her prior level of function. Additional exercises will be introduced and as well as a comprehensive home exercise program upon discharge, if needed, ?to ensure carryover of functional gains achieved in the clinic. This treatment plan has been reviewed and agreement upon by the patient.
--- NOTE | 2022-04-06 11:32 | PCPTNOTE ---
This treatment is being continued on visit number [id number]. Please see documentation on both accounts to view progress. Completed interventions, outcomes, and problems have been marked as Inactive to facilitate the copying of the Care plan routine for recurring accounts.
== END 2022-04-05 12:39 | disposition home or self-care (01) ==
LOC: ANHGOSHPT 08:00
PROVIDERS: Visit Provider Family Medicine Sports Medicine
DX: M25.561 Pain in right knee (principal); M25.562 Pain in left knee; M17.0 Bilateral primary osteoarthritis of knee; M22.42 Chondromalacia patellae, left knee; G89.29 Other chronic pain
CPT/HCPCS: 97110; 97112; 97140; 97161; 97530

== ENCOUNTER 2022-05-20 12:30 | Outpatient (RCR) | payer OTHER, SELFPAY ==
--- NOTE | 2022-04-06 11:26 | PCPTNOTE ---
The treatment documented on this account is a continuation of the treatment documented on visit number [id number]. Please see documentation on both accounts to view progress. The Plan of Care has been transitioned and updated within the new V#. I have addressed and agree with the discipline specific Problems, Interventions, and Goals for the current certification period. Completed interventions, outcomes, and problems have been marked as Inactive to facilitate the copying of the Care plan routine for recurring accounts.
--- NOTE | 2022-04-15 08:40 | PCPTNOTE ---
Patient called & cancelled scheduled appointment this date due to inclement weather
--- NOTE | 2022-04-27 08:04 | PCPTNOTE ---
Patient called & cancelled scheduled appointment this date due to having Covid (+) testing. Well resume POC as able.
--- NOTE | 2022-05-21 16:46 | BUPTOPDC ---
Assessment and note entered by Emma Pattersno, PT Assessment Status Discharge Subjective Information Has been away from therapy for 6 weeks. Pt reports has been doing her exercises. Is able to do her activities with modifications and discomfort. Is able to get up and down now. Pt reports is 70% improved overall. RTD May 28 primary Reported Pain Level Pain Score 1,2: Self Report Assessment PT Clinical Summary Pt returns after 6 weeks without therapy. Reports she has been performing her home exercise plan, that she feels she has continued to improve in this time and rates herself 70% improved overall. States left knee still has buckling and pain but is not as bad . Patellar mobility and alignment improved, sodt tissue adhesions and AROM improved, swelling improved overall. Discussed with pt possible ortho consult to assess knees if intervention could improve her discomfort and function further. Pt has advanced as much as therapy can assist at this time. Pt reports feeling confident in her home exercise program and continuing on her own. Thus patient is being discharged from therapy services at this time.
== END 2022-05-27 14:30 | disposition home or self-care (01) ==
LOC: ANHGOSHPT 12:30
PROVIDERS: Visit Provider Family Medicine Sports Medicine
DX: M25.561 Pain in right knee (principal); M25.562 Pain in left knee; M17.0 Bilateral primary osteoarthritis of knee; M22.42 Chondromalacia patellae, left knee; G89.29 Other chronic pain
CPT/HCPCS: 97110; 97140; 99199

== ENCOUNTER 2023-06-03 16:22 | Emergency (ER) | payer OTHER, SELFPAY ==
--- NOTE | ~2023-06-03 | XR_ITS ---
EXAMINATION: XR shoulder LT min 2V DATE: 06/03/2023 16:49 INDICATION: Left shoulder pain. Fall. TECHNIQUE: 4 views of left shoulder were obtained. COMPARISON: None. FINDINGS: Bone alignment is normal. There is an old healed fracture of the clavicle. No acute fractur e. There is moderate osteoarthritis of glenohumeral joint and mild osteoarthritis of acromioclavicula r joint. There are surgical clips in left neck. IMPRESSION: 1. Polyarticular osteoarthritis. Reviewed, dictated and finalized at location E. [employer]
--- NOTE | 2023-06-03 16:37 | ED.UPPEXIN ---
HPI - Extremity Injury (Upper) General Chief Complaint: Fall Stated Complaint: Injured Shoulder/Knee Time Seen by Provider: 06/03/23 16:30 Source: patient Mode of arrival: ambulatory Limitations: no limitations History of Present Illness HPI narrative: Patient is a 53-year-old female that presents with left shoulder pain after fall today. Patient states she tripped over her cat and fell into the wall and then onto the ground. Patient reports pain to posterior shoulder and back. Patient has had physical therapy on shoulder before. Patient denies any numbness, tingling or weakness to the wrist to the extremity. Related Data Home Medications Medication Instructions Recorded Confirmed amitriptyline 25 mg tablet 25 mg DIRECTED 06/03/23 06/03/23 diazepam 5 mg tablet 5 mg DIRECTED 06/03/23 06/03/23 prazosin 1 mg capsule 1 mg DIRECTED 06/03/23 06/03/23 sertraline 100 mg tablet 100 mg DIRECTED 06/03/23 06/03/23 tramadol 50 mg tablet 50 mg DIRECTED 06/03/23 06/03/23 Allergies Allergy/AdvReac Type Severity Reaction Status Date / Time No Known Allergies Allergy Unknown Verified 02/12/20 13:03 Review of Systems Review of Systems: All systems reviewed & are unremarkable except as noted in HPI and below Constitutional: Constitutional: Denies body ache(s), Denies chills, Denies fatigue, Denies fever(s), Denies headache(s), Denies malaise and Denies weakness Eyes: Eyes: Denies blurry vision, Denies irritation and Denies loss of vision ENT: Denies otalgia, Denies headache(s), Denies nasal discharge, Denies sinus pain and Denies sore throat Cardiovascular: Cardiovascular: Denies chest pain, Denies irregular heart rhythm and Denies dyspnea Respiratory: Respiratory: Denies dyspnea Gastrointestinal: Gastrointestinal: Denies abdominal pain, Denies melena, Denies hematochezia, Denies diarrhea, Denies nausea and Denies vomiting Musculoskeletal: Musculoskeletal: Denies back pain, Denies myalgias and Reports arthralgias Integumentary/Breasts: Skin/Breast: Denies pruritus and Denies rash Neurologic: Denies headache(s), Denies loss of vision and Denies weakness Psychiatric: Psychiatric: Reports no additional psychiatric complaints Endocrine: Endocrine: Denies fatigue PMFSH Past Medical History Medical History Aspiration pneumonia Depression Elevated liver enzymes Hypertension Suicide attempt Tobacco abuse Surgical History Surgical History History of thyroidectomy Family History Family History Sibling Hypertension Father Family history of heart disease in male family member before age 55 Grandparent Family history of heart disease in male family member before age 55 Social History Social History Smoking packs per day: 0.5 Smoking cigarettes per day: 10.0 Smoking status: Current every day smoker Tobacco type: cigarettes Alcohol intake: current Substance use: current Substance use type: marijuana and unknown Gender identity (if verbalized by the patient): Female Spiritual care concerns: No Agree to blood products: Yes Comments At time of signature, agree with nursing past medical, surgical, social and family history. There is no relevant family history pertinent to the presenting complaint. Exam Const: General: cooperative, healthy appearing, comfortable, no acute distress and well nourished Nutritional Appearance: well nourished Orientation/consciousness: patient oriented x3 Limitations: no limitations HENMT: Head: normal to inspection, normocephalic and atraumatic Ears: hearing grossly normal bilaterally and external ears normal Face/Nose/Sinus: Normal external nose present, normal facial exam and face symmetric Face and sinus: normal facial exam and face
[2023-06-03 16:38] VITALS: BP 142/93; PULSE 100; RESP 16; TEMP 36.7; O2SAT 99
== END 2023-06-03 17:18 | disposition home or self-care (01) ==
PROVIDERS: Emergency Provider Nurse Practitioner Family; PCP Hospitalist
DX: S40.012A Contusion of left shoulder, initial encounter (principal); W01.0XXA Fall on same level from slipping, tripping and stumbling without subsequent striking against object, initial encounter; I10 Essential (primary) hypertension; F32.A Depression, unspecified; F17.210 Nicotine dependence, cigarettes, uncomplicated
CPT/HCPCS: 73030; 99213; A4565; G0463